=== PATIENT | female | born 1990 | race Caucasian/White ===

== ENCOUNTER 2017-04-18 18:47 | Emergency (ER) | payer OTHER, BC ==
[2017-04-18 19:54] VITALS: RESP 16; TEMP 98.4
[2017-04-18] MEDS ORDERED: IBUPROFEN 600 MG TABLET PO SCH (22:00)
[2017-04-18] MEDS ORDERED: IBUPROFEN 600 MG TABLET PO ONE (22:07)
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
--- NOTE | 2017-04-20 09:32 | DI ---
XR C-SPINE 2-3 VW,04/18/2017 7:35 PM: Clinical History: Fall with neck pain Previous Exam: None at this facility. Findings: AP and lateral views of the cervical spine are obtained, and demonstrate anatomic alignment without f ractures. Vertebral body height is preserved. Intervertebral disc height is also preserved. The preve rtebral soft tissues are unremarkable. Mastoid air cells are unremarkable as well. The lung apices ar e clear. Impression: Normal cervical spine.
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
--- NOTE | 2017-04-20 09:35 | DI ---
XR L-SPINE 2-3 VW,04/18/2017 7:35 PM: Clinical History: Back pain. Previous Exam: None at this facility. Findings: AP and lateral views of the lumbar spine are obtained, and demonstrate some mild extra scoliosis at t he thoracolumbar junction. Vertebral body height is preserved. Intervertebral disc height is also preserved. A nonobstructive bowel gas pattern is seen. Impression: Mild dextroscoliosis otherwise unremarkable.
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
== END 2017-04-18 22:07 | disposition home or self-care (01) ==
LOC: ER 18:47
DX: S39.012A Strain of muscle, fascia and tendon of lower back, initial encounter (principal); S16.1XXA Strain of muscle, fascia and tendon at neck level, initial encounter; S66.911A Strain of unspecified muscle, fascia and tendon at wrist and hand level, right hand, initial encounter; M54.2 Cervicalgia; M25.531 Pain in right wrist; W01.0XXA Fall on same level from slipping, tripping and stumbling without subsequent striking against object, initial encounter; Y99.0 Civilian activity done for income or pay
CPT/HCPCS: 72040; 72072; 72100; 73100; 84703; 99283

== ENCOUNTER → 2017-05-06 | Outpatient (CLI) | payer OTHER, BC ==
--- NOTE | 2017-05-07 18:09 | DI ---
MRI LUMBAR SPINE SCAN WITHOUT IV CONTRAST, 05/06/2017 3:03 PM: Clinical History: Low back pain. Previous Exam: None. Technique: Sagittal and axial T2 weighted; sagittal T1 weighted and T2 STIR; and axial PD. The vertebral bodies are of normal height and size. There is mild narrowing of the L4-5 disc space wi th mild desiccation change. The remaining lumbar vertebral disc spaces are of normal height and signa l pattern. The cord terminates at T12 and the conus medullaris is normal. The T10-11 disc space has a bulging but not herniated disc without canal or neural foraminal stenosis. The T11-12 through L3-4 d isc spaces are normal. L4-5 has a bulging but not herniated disc without canal or neural foraminal st enosis. L5-S1 also has a very mild bulging but not herniated disc without canal or neural foraminal s tenosis. Readin. There are bulging but not herniated discs without canal or neural foraminal stenosis at T10-11, L 4-5, and L5-S1. 2. The disc spaces from T11-12 through L3-4 are normal.
== END ==
LOC: MRI 14:53
PROVIDERS: ATTEND Chiropractor
DX: M54.5 Low back pain (principal); M47.816 Spondylosis without myelopathy or radiculopathy, lumbar region; M47.817 Spondylosis without myelopathy or radiculopathy, lumbosacral region; M47.814 Spondylosis without myelopathy or radiculopathy, thoracic region
CPT/HCPCS: 72148